=== PATIENT | male | born 1975 | race African-American/Black ===

== ENCOUNTER 2022-07-22 01:05 | Emergency (ER) | payer OTHER ==
[~2022-07-22] VITALS: Ht 180.3 cm; Wt 99.7 kg
[2022-07-22] MEDS ORDERED: FLUOXETINE HCL20 M1 PO (01:39)
[2022-07-22] MEDS ORDERED: BENZTROPINE MESY1 MG PO (01:39)
[2022-07-22] MEDS ORDERED: RISPERDAL2 MG PO (01:40)
[2022-07-22] MEDS ORDERED: HYDROXYZINE HCL25 MG PO (01:40)
[2022-07-22] MEDS ORDERED: OMEPRAZOLE20 MG PO (01:41)
[2022-07-22] MEDS ORDERED: HYDROCODON-ACE1 EA10 PO (02:49)
[2022-07-22] MEDS ORDERED: AMOX TR-K CLV1 EAC1 PO (02:51)
== END 2022-07-22 03:21 | disposition home or self-care (01) ==
LOC: ED 01:05
DX: S02.40FA Zygomatic fracture, left side, initial encounter for closed fracture (principal); S02.40DA Maxillary fracture, left side, initial encounter for closed fracture; S02.2XXA Fracture of nasal bones, initial encounter for closed fracture; S02.32XA Fracture of orbital floor, left side, initial encounter for closed fracture; J45.909 Unspecified asthma, uncomplicated; Z79.899 Other long term (current) drug therapy; Y04.2XXA Assault by strike against or bumped into by another person, initial encounter; Y92.143 Cell of prison as the place of occurrence of the external cause
CPT/HCPCS: 70450; 70486; 96372; 99284-25; A9270; J1170; J2270